=== PATIENT | male | born 1945 | race Caucasian/White ===

== ENCOUNTER 2016-07-16 13:35 | Emergency (ER) | payer MEDICARE ==
[~2016-07-16] VITALS: Ht 188 cm; Wt 93.2 kg
[~2016-07-16 13:35] MED LIST: ALLO300T29 PO; ASC500 PO; ASP81TEC PO; LISI10TA PO; NITR50CA4 PO; OSC500 PO; [UNRECOGNIZED DRUG - CODE] PO; vitamin d PO
[2016-07-16 13:39] VITALS: BP 151/76; PULSE 54; RESP 15; O2SAT 98
[2016-07-16] MEDS ORDERED: 0.9% Sodium Chloride 1,000 ML IV ONE (13:44)
--- NOTE | 2016-07-16 13:44 | ED.REPORT ---
HPI-General Illness Date of Service Jul 16, 2016 ED Provider: Emmanuel Shine MD 71 year old male with a history of kidney stones, cholecystectomy, and prostate cancer presents to the ER accompanied by his complaining of left flank pain onset this morning. Pain is similar to that associated with prior kidney stone. Patient denies fever, chills, dysuria, and vomiting. Symptoms have been treated with Advil. Nursing Notes Stated Complaint: POSS KIDNEY STONE Chief Complaint: Male Abdominal Pain Nursing Notes Reviewed: Yes Allergies: Coded Allergies: No Known Allergies (Unverified , 07/16/16) Scheduled ([vitamin d]) 1,000 IU PO DAILY Allopurinol-Expunged Drug, Do Not Renew! (Allopurinol-Expunged Drug, Do Not Renew!) 300 Mg Tablet 300 MG PO DAILY Ascorbic Acid-Expunged Drug, Do Not Renew! (Vitamin C-Expunged Drug, Do Not Renew!) 500 Mg Tablet 500 MG PO DAILY Aspirin-Expunged Drug, Do Not Renew! (Aspirin EC-Expunged Drug, Do Not Renew!) 81 Mg Tablet 162 MG PO DAILY DO NOT CRUSH Calcium Oyster Shell-Expunged, Do Not Renew! (Oyster Calcium-Expunged, Do Not Renew!) 500 Mg Tab 250 MG PO DAILY Lisinopril-Expunged Drug, Do Not Renew! (Lisinopril-Expunged Drug, Do Not Renew! ) 10 Mg Tablet 10 MG PO DAILY Multivitamins (Tab A Rafal) 1 Each Tablet 1 EACH PO DAILY Nitrofurantoin Macrocrystal-Expunged Drug, Do (Macrodantin-Expunged Drug, Do Not Renew!) 50 Mg Capsule 50 MG PO DAILY Tamsulosin (Flomax) 0.4 Mg Capsule 0.4 MG PO DAILY Scheduled PRN Hydrocodone-Acetaminophen 5-325 mg (Hydrocodone-Acetaminophen 5-325 mg) 1 Each Tablet 1 TABLET PO Q4H PRN PRN For Pain Ibuprofen (Ibuprofen) 600 Mg Tablet 600 MG PO QID PRN PRN For Pain General Time Seen by MD: 13:43 Chief Complaint Other (Flank Pain, Left) Hx Obtained From: Patient Arrived By: Walk-in Sudden in Onset?: No Onset Occurred: 5 - 8 hours ago Symptom Duration: Since onset Associated with: Denies: Fever Pertinent Negative: Pt denies other symptoms Similar Sx Previous: Yes Past Medical History Past Medical History Gout Cholecystitis Basal-cell carcinoma Hearing loss Kidney stone Reports: Cancer (Prostate), Hyperlipidemia, Hypertension Past Surgical History Reports: Appendectomy, Cholecystectomy, Prostatectomy Smoking History Never Smoker Social History Alcohol Use: 1-3 per week Drug Use: Denies drug use Other Social History: , Local resident Ambulatory Status Independent Review of Systems Full Review of Systems Constitutional: Denies: Chills, Fever GI: Denies: Nausea, Vomiting Male: Reports Flank pain, Denies Dysuria, Denies Hematuria, Denies Incontinence, Denies Penile discharge, Denies Penile lesion, Denies Scrotal swelling, Denies Testicular pain, Denies Urinary frequency, Denies Urinary urgency, Denies Urination decreased, Denies Urination increased Complete sys rev & neg: except as marked. Physical Exam Vital Signs Vital Signs Date Time Temp Pulse Resp B/P Pulse Ox O2 Delivery O2 Flow Rate FiO2 07/16/16 15:36 62 15 130/80 100 Room Air 07/16/16 13:39 35.8 54 15 151/76 98 Room Air Initial VS: Reviewed General/Constitutional: Well-developed, Well-nourished Head / Eyes: Atraumatic, Normocephalic Neck: Supple, Non-tender, Full range of motion Extremities: Vascular intact, Neuro intact, No swelling, No tenderness Skin: Warm, Dry, No cyanosis Neurologic: Alert, Oriented, Nonfocal Psychiatric: Mood/affect normal, Behavior normal, Normal thought content Abdomen: Soft, No guarding, No rebound, No distention Tenderness/Guarding/Rebound: Positive: Tender flank L Interpretation & Diagnostics Lab Results Interpretation Result Diagram: 07/16/16 1405 07/16/16 1344 Test 07/16/16 13:44 07/16/16 14:05 07/16/16 14:41 Sodium Level 139mEq/L (134-144) Potassium Level 4.6mEq/L (3.5-5.2) Chloride Level 102mEq/L (97-108) Carbon Dioxide Level 21mmol/L (18-29) Blood Urea Nitrogen 20mg/dL (8-27) Creatinine 1.26mg/dL (0.76-1.27) Estimat Glomerular Filtration Rate 60mL/min (>59) Glucose Level 134mg/dL (60-99) Calcium Level 8.8mg/dL (8.5-10.1) Magnesium Level 2.0mg/dL (1.6-2.6) Total Bilirubin 0.4mg/dL (0.0-1.2) Aspartate Amino Transf (AST/SGOT) 28U/L (0-50) Alanine Aminotransferase (ALT/SGPT) 26U/L (0-44) Alkaline Phosphatase 52U/L (25-160) Total Protein 6.9g/dL (6.4-8.4) Albumin 4.2g/dL (3.4-5.0) Lipase 39U/L (13-60) White Blood Count 12.1th/mm3 (3.8-10.1) Red Blood Count 4.82mil/mm3 (4.40-5.80) Hemoglobin 14.7g/dL (13.8-17.2) Hematocrit 43.6% (41.0-50.0) Mean Corpuscular Volume 90.5fL (81-100) Mean Corpuscular Hemoglobin 30.5pg (27.0-35.0) Mean Corpuscular Hemoglobin Concent 33.7% (32.0-37.0) Red Cell Distribution Width 13.5% (12.3-15.4) Platelet Count 203bil/L (150-400) Neutrophils (%) (Auto) 85.9% (40-74) Lymphocytes (%) (Auto) 8.2% (14-46) Monocytes (%) (Auto) 5.3% (4-12) Eosinophils (%) (Auto) 0.2% (0-5) Basophils (%) (Auto) 0.2% (0-3) Urine Color Straw (YELLOW) Urine Appearance Hazy (CLEAR,HAZY) Urine pH 5.5 (5.0-8.0) Urine Specific [place] 1.025 (1.003-1.035) Urine Protein Negativemg/dL (NEG,TRACE) Urine Glucose (UA) Negativemg/dL (NEGATIVE) Urine Ketones Tracemg/dL (NEGATIVE) Urine Occult Blood Negative (NEGATIVE) Urine Nitrite Negative (NEGATIVE) Urine Bilirubin Negative (NEGATIVE) Urine Urobilinogen Normalmg/dL (NORMAL) Urine Leukocyte Esterase Negative (NEGATIVE) Urine RBC 0-2/hpf (0-2) Urine WBC 0-5/hpf (0-5) Urine Epithelial Cells Occasional/hpf (NONE-MOD) Urine Crystals None seen (NONE SEEN) Urine Bacteria None/hpf (NONE-FEW) Urine Hyaline Casts None/lpf (NONE) Urine Granular Casts None seen (NONE SEEN) Urine Waxy Casts None seen (NONE SEEN) Urine Red Blood Cell Casts None seen (NONE SEEN) Urine White Blood Cell Casts None seen (NONE SEEN) Urine Mucus None seen (None Seen) Urine Trichomonas None seen (NONE SEEN) Urine Yeast None (NONE SEEN) Urinalysis Comment None Urine Culture Reflexed Not indicated CT Abd / Pelvis Interpretation IMPRESSION: 1. Punctate obstructing stone at the left ureterovesicular junction with associated moderate left hydroureteronephrosis and perinephric stranding. 2. Multiple additional bilateral renal stones as described. No right hydronephrosis. 3. Bladder wall thickening and trabeculation redemonstrated, with evaluation limited due to incomplete distention. Findings are nonspecific and may reflect cystitis versus sequelae of chronic bladder outlet obstruction. Dictated by: Gunner Abad M.D. on 07/16/2016 at 14:32 Approved by: Gunner Abad M.D. on 07/16/2016 at 14:45 Study type: Abdominal CT no contrast Interpretation / Wet Read by: Interpret - Radiologist Re-Eval/Medical Decision Med Decision/Clinical Course 71 year old male with a history of kidney stones, cholecystectomy, and prostate cancer presents to the ER accompanied by his complaining of left flank pain onset this morning. Here in the emergency department the patient is afebrile stable vital signs though appears quite uncomfortable. His pain was treated with IV fluids, Zofran for nausea and hydromorphone. He reported significant symptomatic improvement. CT scan of the abdomen and pelvis was obtained as below: 1. Punctate obstructing stone at the left ureterovesicular junction with associated moderate left hydroureteronephrosis and perinephric stranding. 2. Multiple additional bilateral renal stones as described. No right hydronephrosis. 3. Bladder wall thickening and trabeculation redemonstrated, with evaluation limited due to incomplete distention. Findings are nonspecific and may reflect cystitis versus sequelae of chronic bladder outlet obstruction. Laboratory studies notable as below: Leukocytosis 12.1 Chemistry normal Renal function normal Urinalysis shows no signs of UTI, 0-2 RBC's Overall presentation consistent with renal colic. Abdominal examination reassuring against any acute surgical process. Pain at this time well controlled and patient tolerating PO. No evidence of significant kidney injury , infected stone, renal abscess or significant hydronephrosis. Stone likely to pass without surgical intervention. Prescribed Grand Tower for pain, ibuprofen, Flomax and advised to orally hydrate. Urine strainer provided. Referral to urology provided. Patient will call tomorrow to make an appointment. Follow- up and return precautions were reviewed in detail patient was discharged in good condition. Source of Hx: Old records Time of Eval: 15:23 Re-Evaluation/Progress Note: Discussed lab and radiology results and plan to discharge. Patient is amenable to the plan. Return precautions given. All other questions addressed. Counseled Regarding: Diagnosis, Lab results, Need for follow-up, When/why to return to ED Discharge & Departure Primary Impression: Kidney stone Additional Impressions: Hydronephrosis Hydronephrosis type: other Qualified Code: N13.39 - Other hydronephrosis Flank pain, acute Disposition: Home Discharge Condition All VS Reviewed: Yes Condition: Stable Patient Instructions: Nephrolithiasis (DC) Additional Instructions: Thank you for seeking care at emergency room. It is difficult for us to make definitive diagnoses in the ED but we believe that you are experiencing kidney stones. Our primary goal today in the ED was to evaluate you for any life-threatening conditions. Your evaluation was reassuring. You will be discharged with a prescription for Flomax and Grand Tower. Please take these medications as directed. Do not drink alcohol or drive while taking [place]. You can also take ibuprofen as directed for pain. Drink plenty of fluids. Use a urine strainer. You should follow-up with your urologist this week. You should return to the ED immediately if you develop worsening pain, fever, chills, burning with urination, increased frequency of urination, vomiting, diarrhea, or any other concerning signs or symptoms. Thank you for letting us partake in your care today. Referrals: Dawson Naidu MD (PCP) Rose Mary Yap MD Scribe Attestation Portions of this note were transcribed by Kostas Tovar. I, Dr. Shine, personally performed the history, physical exam and medical decision-making; I reviewed and confirmed the accuracy of the information in the transcribed note. Signed by: Marquis Villatoro, 07/16/2016 and 15:29 copies to: Dawson Naidu MD; Rose Mary Yap MD, Beck O MD Jul 16, 2016 13:44 KOSTAS TOVAR Jul 16, 2016 15:09
[2016-07-16] MEDS ORDERED: Ondansetron 2 mg/mL 2 mL Inj IVPUSH ONE (13:45)
[2016-07-16] MEDS ORDERED: HYDROmorphone 0.5 mg/0.5 mL iSecure Syringe IVPUSH PRN (13:45)
[2016-07-16 14:20] LABS: BASOPHILS % (AUTO) 0.2 % (0-3); EOSINOPHILS % (AUTO) 0.2 % (0-5); MONOCYTES % (AUTO) 5.3 % (4-12); Mean Corpuscular Hemoglobin 30.5 pg (27.0-35.0); Mean Corpuscular Volume 90.5 fL (81-100); NEUTROPHILS % (AUTO) 85.9 % (40-74); Platelet Count 203 bil/L (150-400)
--- NOTE | 2016-07-16 14:46 | DRSVH ---
PROCEDURE: CT KUB ([id number]) INDICATIONS: renal colic TECHNIQUE: Noncontrast 5 mm thick sections acquired from the diaphragms to the symphysis. 5 mm thick coronal an d sagittal reformats were then performed. For radiation dose reduction, the following was used: aut omated exposure control, adjustment of mA and/or kV according to patient size. COMPARISON: [facility], CT, CT ABD PELVIS W CON, 06/23/2015, 23:17. FINDINGS: Image quality: There is streak artifact associated with multiple surgical clips in the pelvis. Lung bases: There is mild dependent atelectasis. Heart size is normal. Urinary system: There is a punctate stone in the region of the left ureterovesicular junction with as sociated moderate left hydroureteronephrosis with perinephric and periureteral stranding. No right h ydronephrosis. There are a few additional small bilateral renal stones, at least 12 on the right cammy suring up to 6 mm, and 3-4 on the left measuring up to 2 mm. The bladder is partially distended with mild wall thickening and trabeculation redemonstrated. Other solid organs: There is a cluster of coarse calcifications in the right hepatic dome redemonstr ated likely representing dystrophic calcifications related to prior infection. The spleen is normal in size. Gallbladder is surgically absent. Pancreas is normal in contours. No adrenal nodules. Peritoneum and bowel: Small and large bowel loops demonstrate normal wall thickness and caliber. No free fluid or air. Nodes and vessels: No retroperitoneal or mesenteric adenopathy by size criteria. There is mild hazy gastrin in the mesentery with scattered subcentimeter mesenteric lymph nodes. Aorta and inferior ve na cava are normal in caliber. Abdominal wall: No ventral hernias. Pelvis: No free pelvic fluid. No inguinal hernias or adenopathy. Bones: No suspicious bony lesions. No vertebral body compression fractures. IMPRESSION: 1. Punctate obstructing stone at the left ureterovesicular junction with associated moderate left hy droureteronephrosis and perinephric stranding. 2. Multiple additional bilateral renal stones as described. No right hydronephrosis. 3. Bladder wall thickening and trabeculation redemonstrated, with evaluation limited due to incomple te distention. Findings are nonspecific and may reflect cystitis versus sequelae of chronic bladder outlet obstruction. Dictated by: Gunner Abad M.D. on 07/16/2016 at 14:32 Approved by: Gunner Abad M.D. on 07/16/2016 at 14:45
[2016-07-16 15:05] LABS: APPEARANCE,URINE HAZY (CLEAR,HAZY); COLOR,URINE STRAW (YELLOW); OCCULT BLOOD,URINE NEGATIVE (NEGATIVE); PH,URINE 5.5 (5.0-8.0); UROBILINOGEN,URINE NORMAL (NORMAL)
[2016-07-16] MEDS ORDERED: HYDR-4003 PO (15:11)
[2016-07-16] MEDS ORDERED: TAMS0.4C98 PO (15:11)
[2016-07-16] MEDS ORDERED: IBUP-1827 PO (15:11)
[2016-07-16 15:36] VITALS: BP 130/80; PULSE 62; RESP 15; O2SAT 100
== END 2016-07-16 15:35 | disposition home or self-care (01) ==
LOC: SED 13:35
DX: N13.2 Hydronephrosis with renal and ureteral calculous obstruction (principal); I10 Essential (primary) hypertension; E78.5 Hyperlipidemia, unspecified; Z85.46 Personal history of malignant neoplasm of prostate
CPT/HCPCS: 36415; 74176; 80053; 81000; 83690; 83735; 85025; 96361; 96374; 96375; 99285; J1170; J2405; J7030